=== PATIENT | female | born 1940 | race Caucasian/White ===

== ENCOUNTER → 2025-02-25 07:29 | Outpatient (REF) | payer OTHER, SELFPAY | LOC: PAVMRI 07:29 | PROVIDERS: ATTENDING PHYSICIAN Physician Assistant; FAMILY PHYSICIAN Physician Assistant Medical | DX: H90.A21 Sensorineural hearing loss, unilateral, right ear, with restricted hearing on the contralateral side (principal) | CPT/HCPCS: 70553; A9575 ==